=== PATIENT | male | born 1955 | race Caucasian/White ===

== ENCOUNTER → 2020-11-19 | Day surgery (SDC) | payer OTHER ==
[~2020-11-19] VITALS: Ht 165.1 cm; Wt 91.1 kg
[~2020-11-19] MED LIST: AMLODIPINE BESYL5 MG PO; ATORVASTATIN CA40 MG PO; COZAAR100 MG PO; METOPROLOL TAR100 MG PO
[2020-11-19 07:26] LABS: HCT 38.4 % (42.0-52.0); MCH 32.1 pg (25.0-31.0); MCHC 33.9 g/dL (32.0-36.0); MCV 94.8 fL (78.0-100.0); MPV 8.8 fL (6.0-9.5); RBC 4.05 M/uL (4.70-6.00); WBC 9.2 K/uL (4.0-10.5)
[2020-11-19 07:44] LABS: ALBUMIN 3.6 g/dL (3.4-5.0); BILIRUBIN - TOTAL 0.7 mg/dL (0.2-1.0); BUN/CREAT RATIO (CALC) 12.7 RATIO; CREATININE 1.02 mg/dL (0.67-1.17); GLOBULIN (CALCULATION) 3.8 g/dL; POTASSIUM 4.3 mmol/L (3.5-5.1); TOTAL PROTEIN 7.4 g/dL (6.4-8.2)
== END | disposition home or self-care (01) ==
LOC: FAS 06:41
PROVIDERS: Surgery
DX: Z12.11 Encounter for screening for malignant neoplasm of colon (principal); K63.5 Polyp of colon; K57.30 Diverticulosis of large intestine without perforation or abscess without bleeding; I10 Essential (primary) hypertension; E78.5 Hyperlipidemia, unspecified; F17.200 Nicotine dependence, unspecified, uncomplicated; Z79.899 Other long term (current) drug therapy
CPT/HCPCS: 36415; 80053; J2250; J7120